=== PATIENT | male | born 1955 | race Caucasian/White ===

== ENCOUNTER 2017-09-27 07:25 | Outpatient (CLI) | payer OTHER ==
--- NOTE | 2017-09-27 07:52 | RAD ---
TWO VIEWS CHEST: HISTORY: Shortness of breath. FINDINGS: PA and lateral views of the chest are obtained. The lungs are well aerated. No evidence of active i ntrathoracic disease is seen. No evidence of effusions, pneumonia, or pneumothorax is seen. IMPRESSION: Normal 2 views chest. POS: [facility]
== END 2017-09-27 07:26 | disposition home or self-care (01) ==
LOC: RAD-FRANK 07:25
PROVIDERS: ATTEND Nurse Practitioner Family
DX: J44.9 Chronic obstructive pulmonary disease, unspecified (principal); R06.02 Shortness of breath; R60.0 Localized edema; R63.5 Abnormal weight gain
CPT/HCPCS: 71020

== ENCOUNTER 2017-10-11 10:47 | Outpatient (CLI) | payer OTHER | END 2017-10-11 10:48 | disposition home or self-care (01) | LOC: DTY/OP 10:47 | PROVIDERS: ATTEND Nurse Practitioner Family | DX: E66.01 Morbid (severe) obesity due to excess calories (principal); R73.09 Other abnormal glucose; R94.5 Abnormal results of liver function studies | CPT/HCPCS: 97802 ==

== ENCOUNTER 2017-10-15 16:49 | Emergency (ER) | payer OTHER ==
[2017-10-15 17:30] LABS: Hemoglobin 15.3 g/dL (14.0-18.0); Mean Corpuscular HGB CONC 33.1 g/dL (32.0-36.0); Mean Corpuscular Hemoglobin 27.2 pg (27.0-31.0); Mean Platelet Volume 6.8 fL (7.4-10.4); Platelet Count 265 thou/uL (130-400); RBC Distribution Width 13.2 % (11.5-14.5); Red Blood Cell (RBC) Count 5.63 mill/uL (4.70-6.10); White Blood Cell (WBC) Count 11.1 thou/uL (4.8-10.8)
[2017-10-15 17:55] LABS: ALT (SGPT) 91 U/L (8-55); AST (SGOT) 79 U/L (5-34); Albumin 3.8 g/dL (3.4-4.8); Alkaline Phosphatase 123 U/L (40-150); Anion Gap 14 mmol/L (10-20); BUN (Urea Nitrogen) 13 mg/dL (8.4-25.7); Bilirubin, Total 0.6 mg/dL (0.2-1.2); CK (CPK) 225 U/L (30-200); Calc. Creatinine Clearance 0 mL/min (70-130); Calcium 9.5 mg/dL (7.8-10.44); Carbon Dioxide 26 mmol/L (23-31); Chloride 98 mmol/L (98-107); Estimated GFR-MDRD 61; Globulin 3.4 g/dL (2.4-3.5); Glucose 232 mg/dL (80-115); Potassium 4.3 mmol/L (3.5-5.1); Protein, Total 7.2 g/dL (5.8-8.1); Sodium 134 mmol/L (136-145)
[2017-10-15 17:58] LABS: Troponin I Less than 0.010 ng/mL (< 0.028)
[2017-10-15 17:59] LABS: Band 4 % (5-11); Eosinophils 1 % (0-10); Lymphocytes 21 % (21-51); MDiff Complete? YES; Monocytes 2 % (0-10); Neutrophil 61 % (42-75); Reactive Lymphocytes 11 % (0-10)
[2017-10-15 18:27] LABS: Magnesium 1.9 mg/dL (1.6-2.6)
[2017-10-15 18:59] LABS: Amphetamine Not Detected (NotDetected); Barbiturates Screen Not Detected (NotDetected); Benzodiazepine Screen Not Detected (NotDetected); Cocaine Metabolite Screen Not Detected (NotDetected); Medtox Control Line Valid? VALID (VALID); Medtox Reader # READER 1; Methadone Not Detected (NotDetected); Methamphetamine Not Detected (NotDetected); Opiate Screen Not Detected (NotDetected); Oxycodone Screen Not Detected (NotDetected); Phencyclidine (PCP) Not Detected (NotDetected); THC/Cannabinoid Screen Not Detected (NotDetected); Tricyclic Screen Not Detected (NotDetected)
[2017-10-15] MEDS ORDERED: Furosemide 20 MG/2 ML VIAL ONE (19:16)
[2017-10-15] MEDS ORDERED: Furosemide 40 MG/4 ML VIAL ONE (19:16)
[2017-10-15 19:18] LABS: Bilirubin Negative (Negative); Blood, Urine Negative (Negative); Clarity CLEAR (Clear); Glucose, Urine (Dipstick) 250 mg/dL (Negative); Leukocyte Negative (Negative); Nitrite Negative (Negative); Protein, Urine (Dipstick) Negative (Neg-Trace); pH, Urine 6.5 (5.0-9.0)
--- NOTE | 2017-10-15 20:15 | RAD ---
PORTABLE CHEST ONE VIEW 10/15/17 at 5:27 p.m. HISTORY: Shortness of breath and tachycardia. FINDINGS: Comparison made to exam of 09/27/17. The heart size is normal. The lungs are expanded without focal areas of consolidation, pneumothorax o r pleural effusions. IMPRESSION: No radiographic evidence of acute cardiopulmonary process. POS: [facility]
[2017-10-15] MEDS ORDERED: Dexamethasone 4 mg/ml Vial ONE (22:13)
[2017-10-15 22:15] LABS: Lactic Acid 1.4 mmol/L (0.5-2.2)
--- NOTE | 2017-11-03 22:41 | EKG ---
Test Reason : Blood Pressure : / mmHG Vent. Rate : 111 BPM Atrial Rate : 111 BPM P-R Int : 134 ms QRS Dur : 090 ms QT Int : 340 ms P-R-T Axes : 041 -50 025 degrees QTc Int : 462 ms Sinus tachycardia Left axis deviation Inferior infarct , age undetermined Abnormal ECG Confirmed by CASSANDRA ALEMAN ([id number]), desk editor ECTOR TONEY ([id number]) on 11/03/2017 10:40:47 PM Referred By: Confirmed By:CASSANDRA ALEMAN
== END 2017-10-15 23:50 | disposition home or self-care (01) ==
LOC: ERS 16:49
DX: J44.1 Chronic obstructive pulmonary disease with (acute) exacerbation (principal); F41.9 Anxiety disorder, unspecified; F32.9 Major depressive disorder, single episode, unspecified; Z87.891 Personal history of nicotine dependence
CPT/HCPCS: 36415; 71045; 80053; 80306; 81003; 82553; 83605; 83690; 83735; 83880; 84443; 84484; 85025; 85379; 87804; 93005; 94760; 96374; 96375; J1100; J1940; J7620

== ENCOUNTER 2017-10-17 13:18 | Outpatient (CLI) | payer OTHER ==
--- NOTE | 2017-10-18 05:58 | HP ---
DATE OF SERVICE: 10/17/2017 HISTORY OF PRESENT ILLNESS: Mr. Brent Sánchez is a very pleasant 62-year-old gentleman who [facility] evaluation of bilateral lower extremity lymphedema. The patient states that he has a pneumatic pump at home for treatment of lymphedema. He states, however, that he is unable to utilize his pneumatic pump. The patient states that he has COPD. He states that when he has diff iculty breathing, he develops anxiety which is relieved with ambulation. He states that he is unable to ambulate while utilizing his pneumatic pump which precludes its use. The patient states that the anxiety he experiences occurs very frequently throughout the day and evening. PAST MEDICAL HISTORY: 1. COPD. 2. Gastroesophageal reflux disease. PAST SURGICAL HISTORY: Cholecystectomy. MEDICATIONS: 1. 2. Zyrtec. 3. Metformin. 4. Omeprazole. 5. Spironolactone. 6. Prednisone. 7. P.o. antibiotics. ALLERGIES: DEMEROL. SOCIAL HISTORY: Significant for tobacco use of 2 packs of cigarettes per day for 20 years. The stephanie ent states that he stopped smoking 8 years ago. The patient admits to the heavy consumption of alcoh ol in the past. He states that he stopped consuming alcohol 20 years ago. FAMILY HISTORY: Significant for diabetes mellitus. The patient states that his aunt was diagnosed w ith diabetes mellitus. PHYSICAL EXAMINATION: VITAL SIGNS: Temperature 97.4, pulse 97, respiration is 19, blood pressure 139/73. Accu-Chek 334. GENERAL: A 62-year-old gentleman sitting on chair in examination room in no acute distress. HEENT: Normocephalic, atraumatic. NECK: No nuchal rigidity. CHEST: Clear to auscultation. CARDIAC: Regular rate and rhythm. ABDOMEN: Soft. EXTREMITIES: No open wounds of the right or left lower extremities are present. Circumferences of t he right and left lower extremities at the ankle, calf, knee are as follows: On the right, 29.5 cm, 45.0 cm and 51.0 cm. On the left, the circumferences are 31.0 cm, 49.0 cm and 53.0 cm. No celluliti s of the right or left lower extremity is present. No maceration of the skin of the right or left lo wer extremity is present. NEUROLOGIC: Grossly nonfocal. ASSESSMENT AND PLAN: 1. Lymphedema of right and left lower extremities. As stated above, the patient is unable to utiliz e his pneumatic pump. I have recommended compression garments to the patient which he states he will purchase. The patient states that he may be in the process of evaluation for venous ablation on the right and on the left. Cardiology will be contacted to determine if the patient is indeed in the pr ocess of being evaluated for venous ablation. The patient states that he has previously been referre d to Occupational Therapy for instruction in manual lymphatic drainage. I have also recommended aqua tic therapy to Mr. Sánchez in addition to ambulation for at least 5 minutes every hour while awake fo r lower extremity edema. I have explained to the patient that ambulation may increase venous return, resulting in an improvement in his lower extremity lymphedema. The patient understands and is in ag reement with the preceding treatment plan. The patient will be discharged from clinic today with nimisha zacarias on a p.r.n. basis. 2. Chronic obstructive pulmonary disease. 3. Gastroesophageal reflux disease.
== END 2017-10-17 13:19 | disposition home or self-care (01) ==
LOC: WCC 13:18
PROVIDERS: ATTEND Family Medicine
DX: S81.802D Unspecified open wound, left lower leg, subsequent encounter (principal); S81.801D Unspecified open wound, right lower leg, subsequent encounter
CPT/HCPCS: 29581; 36416; 99204; G0463

== ENCOUNTER 2017-11-01 07:20 | Outpatient (CLI) | payer OTHER ==
--- NOTE | 2017-11-01 09:56 | CT ---
CT OF THE CHEST AND ABDOMEN AND PELVIS WITH IV CONTRAST: INDICATION: A 62-year-old male with edema in both legs, inguinal lymphadenopathy, aortic stenosis, arterial insuf ficiency of the lower extremities, sinus tachycardia, and COPD. The patient also has a history of we ight gain and shortness of breath. COMPARISON: Prior CT of the chest, abdomen, and pelvis dated 10/30/16. FINDINGS: No focal consolidation, pleural effusion, or pneumothorax is evident. No suspicious pulmonary nodule is identified. No pathologically enlarged lymph nodes are seen within the mediastinum, hilar, or ax illary regions. There is mild male gynecomastia bilaterally. There is prominent fatty infiltration of the liver. The gallbladder is surgically absent. The pancr eas, adrenal glands, and spleen appear within normal limits. There is stable right nephrolithiasis. No free fluid or enlarged lymph nodes are evident. There is poor distention of the colon. Small bowel is of normal caliber. No free fluid is evident. Bladder, rectum, and perirectal soft tissues are unremarkable. No definite acute osseous abnormality is evident. There is scattered degenerative and osteoarthritic change. There are some shotty-appearing lymph nodes seen within the inguinal regions bilaterally whi ch appear similar to the comparison study. IMPRESSION: Stable examination of the chest, abdomen, and pelvis. POS: [facility]
[2017-11-01] MEDS ORDERED: Iopamidol 370 76% 100 ML VIAL ONE (13:53)
== END 2017-11-01 07:21 | disposition home or self-care (01) ==
LOC: CT 07:20
PROVIDERS: ATTEND Nurse Practitioner Family
DX: R00.0 Tachycardia, unspecified (principal); R60.0 Localized edema; R59.0 Localized enlarged lymph nodes; I77.1 Stricture of artery; I73.9 Peripheral vascular disease, unspecified; J44.9 Chronic obstructive pulmonary disease, unspecified; R06.02 Shortness of breath; R63.5 Abnormal weight gain
CPT/HCPCS: 71260; 74177

== ENCOUNTER 2017-11-06 09:27 | Outpatient (CLI) | payer OTHER ==
--- NOTE | 2017-11-06 10:44 | ULT ---
THYROID SONOGRAM: History: Neck mass. FINDINGS: The right thyroid lobe is 4.4 cm. Isthmus is 0.4 cm. Each lobe has a heterogeneous echotexture. At the mid portion of the left thyroid lobe is a well circumscribed heterogeneous predominately isoec hoic mass that is 2.3 x 1.8 x 1.6 cm diameter. No cystic components are apparent. IMPRESSION: Dominant solid heterogenous left thyroid lobe mass, 2.3 cm greatest diameter. Please consider cytolog ic evaluation. Sonographic guidance could be used for FNA if needed. POS: [facility]
== END 2017-11-06 09:28 | disposition home or self-care (01) ==
LOC: ULT 09:27
PROVIDERS: ATTEND Otolaryngology Plastic Surgery within the Head & Neck
DX: E07.9 Disorder of thyroid, unspecified (principal)
CPT/HCPCS: 76536

== ENCOUNTER 2017-11-23 07:47 | Day surgery (SDC) | payer OTHER ==
[2017-11-22 14:17] VITALS: BMI 40.1
[2017-11-23] MEDS ORDERED: Sodium Bicarbonate 2.5 MEQ/5 ML VIAL ONE (08:17)
[2017-11-23] MEDS ORDERED: Lidocaine 1% PF 5 ML VIAL ONE (08:17)
[2017-11-23 08:44] VITALS: BP 144/82; TEMP 97.4
--- NOTE | 2017-11-23 10:31 | ULT ---
ULTRASOUND GUIDED THYROID FNA: Date: 11/23/17 HISTORY: Left thyroid lobe mass. COMPARISON: 11/06/17. FINDINGS: Technically successful ultrasound guided fine needle aspiration of a left thyroid lobe solid nodule/m ass. A total of four passes were obtained. No immediate or postprocedure complications. TECHNIQUE: Consent obtained to perform ultrasound guided FNA of a solid nodule in the left thyroid lobe. This no dule measures 1.8 x 2.1 x 2.0 cm. Left neck was prepped and draped in the sterile fashion. 1% lidocai ne, buffered with sodium bicarbonate, was used for local anesthesia. Under ultrasound guidance, 25 ga uge needle was used to perform four separate fine needle aspirations. The patient tolerated the proce dure well. No immediate or postprocedure complications. Postprocedure images do not demonstrate any s ignificant hematoma. IMPRESSION: Successful ultrasound guided fine needle aspiration of a left thyroid lobe solid mass. POS: [facility]
== END 2017-11-23 09:30 | disposition home or self-care (01) ==
LOC: ULT 07:47
PROVIDERS: ATTEND Otolaryngology Plastic Surgery within the Head & Neck
PROC: 0GJK3ZZ Inspection of Thyroid Gland, Percutaneous Approach (ICD-10-PCS; principal; 2017-11-23)
DX: E04.1 Nontoxic single thyroid nodule (principal); J44.9 Chronic obstructive pulmonary disease, unspecified; K21.9 Gastro-esophageal reflux disease without esophagitis; Z79.84 Long term (current) use of oral hypoglycemic drugs; Z79.52 Long term (current) use of systemic steroids; Z79.51 Long term (current) use of inhaled steroids; Z79.899 Other long term (current) drug therapy; Z87.891 Personal history of nicotine dependence; Z88.5 Allergy status to narcotic agent; Z90.49 Acquired absence of other specified parts of digestive tract
CPT/HCPCS: 10022; 76942; 88173; J2001

== ENCOUNTER 2019-01-09 08:24 | Outpatient (CLI) | payer OTHER ==
--- NOTE | 2019-01-09 09:53 | ULT ---
FEXAM:Thyroid ultrasound HISTORY: Follow-up thyroid nodule which is been previously biopsied and described as benign. COMPARISON: 11/06/2017 study. FINDINGS:Real-time imaging of the right and left lobes of the gland were performed. The right lobe me asures 1.8 x 1.6 x 4.6 cm. The left lobe measures 2.1 x 2.2 x 4.7 cm. The left lobe thyroid nodule ap pears stable. It measures 1.7 x 2.3 cm. It appears unchanged. IMPRESSION:Stable left lobe thyroid nodule.
== END 2019-01-09 08:25 | disposition home or self-care (01) ==
LOC: BICULT 08:24
PROVIDERS: ATTEND Otolaryngology Plastic Surgery within the Head & Neck
DX: E07.9 Disorder of thyroid, unspecified (principal); E04.1 Nontoxic single thyroid nodule
CPT/HCPCS: 76536

== ENCOUNTER 2022-12-15 09:33 | Outpatient (CLI) | payer MEDICARE, OTHER | END 2022-12-15 09:34 | disposition home or self-care (01) | LOC: RAD 09:33 | PROVIDERS: ATTEND Internal Medicine Critical Care Medicine | DX: J44.9 Chronic obstructive pulmonary disease, unspecified (principal) | CPT/HCPCS: 71046 ==

== ENCOUNTER 2022-12-27 22:06 | Observation (INO) | payer MEDICARE, OTHER ==
[2022-12-27 22:36] LABS: #Eosinphils 0.2 thou/uL (0.0-0.7); #Lymphocytes 2.9 thou/uL (1.20-3.40); #Monocytes 0.6 thou/uL (0.11-0.59); #Neutrophils 4.3 thou/uL (1.40-6.50); %Basophils 0.3 % (0.0-1.0); %Eosinophils 2.3 % (0.0-10.0); %Lymphocytes 36.3 % (21.0-51.0); %Monocytes 7.1 % (0.0-10.0); Hemoglobin 14.3 g/dL (14.0-18.0); Mean Corpuscular HGB CONC 33.9 g/dL (32.0-36.0); Mean Corpuscular Hemoglobin 27.7 pg (27.0-31.0); Mean Corpuscular Volume 81.8 fl (78.0-98.0); Mean Platelet Volume 7.6 fL (7.4-10.4); Platelet Count 170 10x3/uL (130-400); RBC Distribution Width 13.6 % (11.5-14.5); Red Blood Cell (RBC) Count 5.15 mill/uL (4.70-6.10); White Blood Cell (WBC) Count 7.9 10x3/uL (4.8-10.8)
[2022-12-27 22:55] LABS: ALT (SGPT) 25 U/L (8-55); AST (SGOT) 20 U/L (5-34); Alkaline Phosphatase 94 U/L (40-110); Anion Gap 13 mmol/L (10-20); BUN (Urea Nitrogen) 15 mg/dL (8.4-25.7); Bilirubin, Total 0.3 mg/dL (0.2-1.2); Calc. Creatinine Clearance 0 mL/min (70-130); Calcium 8.9 mg/dL (7.8-10.44); Carbon Dioxide 22 mmol/L (23-31); Chloride 107 mmol/L (98-107); Estimated GFR 76; Globulin 2.5 g/dL (2.4-3.5); Glucose 138 mg/dL (80-115); Lipase 41 U/L (8-78); Potassium 4.3 mmol/L (3.5-5.1); Protein, Total 6.5 g/dL (5.8-8.1); Sodium 138 mmol/L (136-145)
[2022-12-27] MEDS ORDERED: Dextrose 5% in Water 1,000 ML IV PRN (23:47)
[2022-12-27] MEDS ORDERED: HumaLOG 300 UNITS/3 ML VIAL SC PRN (23:47)
[2022-12-27] MEDS ORDERED: Dextrose 50% Abboject 50 ML SYRINGE SLOW IVP PRN (23:47)
[2022-12-28 00:25] VITALS: BMI 38.1
[2022-12-28 04:51] LABS: Hemoglobin A1c 5.9 % (4.0-6.0)
[2022-12-28 04:52] LABS: #Eosinphils 0.2 thou/uL (0.0-0.7); #Lymphocytes 3.4 thou/uL (1.20-3.40); #Monocytes 0.6 thou/uL (0.11-0.59); #Neutrophils 4.2 thou/uL (1.40-6.50); %Basophils 0.4 % (0.0-1.0); %Eosinophils 2.7 % (0.0-10.0); %Lymphocytes 40.4 % (21.0-51.0); %Monocytes 7.2 % (0.0-10.0); %Neutrophils 49.4 % (42.0-75.0); Hemoglobin 13.7 g/dL (14.0-18.0); Mean Corpuscular HGB CONC 32.8 g/dL (32.0-36.0); Mean Corpuscular Hemoglobin 27.3 pg (27.0-31.0); Mean Corpuscular Volume 83.2 fl (78.0-98.0); Mean Platelet Volume 7.5 fL (7.4-10.4); Platelet Count 163 10x3/uL (130-400); RBC Distribution Width 13.7 % (11.5-14.5); Red Blood Cell (RBC) Count 5.01 mill/uL (4.70-6.10); White Blood Cell (WBC) Count 8.4 10x3/uL (4.8-10.8)
[2022-12-28 05:11] LABS: Anion Gap 11 mmol/L (10-20); BUN (Urea Nitrogen) 16 mg/dL (8.4-25.7); Calc. Creatinine Clearance 138 mL/min (70-130); Calcium 8.6 mg/dL (7.8-10.44); Carbon Dioxide 24 mmol/L (23-31); Cardiac Risk 3.1 (Less than 4.5); Chloride 106 mmol/L (98-107); Cholesterol 113 mg/dl (< 200 Desired); Estimated GFR 94; Glucose 142 mg/dL (80-115); HDL Cholesterol 36 mg/dL (>60 Neg Risk); LDL Cholesterol, Calculated 40 mg/dL; Potassium 4.2 mmol/L (3.5-5.1); Sodium 137 mmol/L (136-145); Triglycerides 185 mg/dL (Less than 150)
[2022-12-28 07:59] LABS: Troponin I Less than 0.010 ng/mL (< 0.028)
[2022-12-28] MEDS ORDERED: Lisinopril 2.5 MG TAB PO SCH (09:00)
[2022-12-28] MEDS ORDERED: Tamsulosin HCl 0.4 MG CAP PO SCH (09:00)
[2022-12-28] MEDS ORDERED: Spironolactone 25 MG TAB PO SCH (09:00)
[2022-12-28] MEDS ORDERED: FLUoxetine HCl 20 MG CAP PO SCH (09:00)
[2022-12-28] MEDS ORDERED: Regadenoson 0.4 MG/5 ML SYRINGE ONE (09:02)
[2022-12-28 12:37] VITALS: BP 127/63; TEMP 98.2
[2022-12-28] MEDS ORDERED: Atorvastatin Calcium 40 MG TAB PO SCH (21:00)
== END 2022-12-28 15:31 | disposition home or self-care (01) ==
LOC: SUATTDRO 22:06 → ERS 22:06 → 2SW 23:21
PROVIDERS: ADMIT Internal Medicine; ATTEND Internal Medicine
DX: R07.2 Precordial pain (principal); I10 Essential (primary) hypertension; E11.9 Type 2 diabetes mellitus without complications; J44.9 Chronic obstructive pulmonary disease, unspecified; Z87.891 Personal history of nicotine dependence; Z88.5 Allergy status to narcotic agent; Z79.84 Long term (current) use of oral hypoglycemic drugs; Z79.899 Other long term (current) drug therapy
CPT/HCPCS: 71045; 78452; 80048; 80053; 80061; 82962; 83036; 83690; 83880; 84443; 84484 ×2; 85025 ×2; 93005; 93017; 96372; 99285; A9500; G0378 ×2; 36415; 36416; J1650; J2785

== ENCOUNTER 2023-02-06 08:24 | Outpatient (CLI) | payer MEDICARE, OTHER | END 2023-02-06 08:25 | disposition home or self-care (01) | LOC: SCSCT 08:24 | PROVIDERS: ATTEND Psychiatry & Neurology Neurology | DX: R41.3 Other amnesia (principal) | CPT/HCPCS: 70450 ==